=== PATIENT | male | born 1970 ===

== ENCOUNTER 2021-04-20 12:10 | Outpatient (REF) | payer OTHER, SELFPAY ==
[2021-04-20 21:11] LABS: Calculated LDL 151 mg/dL (<100); Cholesterol 232 mg/dL (<200); HDL Cholesterol 68 mg/dL (40-60); Triglyceride 68 mg/dL (<150)
[2021-04-20 21:18] LABS: Hemoglobin A1C 5.6 % (<5.7)
== END 2021-04-20 12:11 | disposition home or self-care (01) ==
LOC: NCHCN 12:10
PROVIDERS: PCP Internal Medicine; Visit Provider Internal Medicine
DX: Z13.220 Encounter for screening for lipoid disorders (principal); Z13.1 Encounter for screening for diabetes mellitus; E66.9 Obesity, unspecified
CPT/HCPCS: 80061; 83036